=== PATIENT | female | born 1955 | race Caucasian/White ===

== ENCOUNTER 2019-05-01 20:28 | Emergency (ER) | payer OTHER ==
[2019-05-01 20:44] VITALS: BP 129/77; PULSE 72; BMI 28.9
--- NOTE | 2019-05-01 21:45 | PDOC ---
Documentation entered by Isai Fonseca SCRIBE, acting as scribe for Izabel Conn MD. Izabel Conn MD: This documentation has been prepared by the darielaeRaymundo Angel, SCRIBE, under my direction and personally reviewed by me in its entirety. I confirm that the documentation accurately reflects all work, treatment, procedures, and medical decision making performed by me. History of Present Illness - General Chief Complaint: Injury Stated Complaint: KNEE INJURY Time Seen by Provider: 05/01/19 20:32 History Source: Patient Exam Limitations: No Limitations - History of Present Illness Initial Comments: 05/01/19 21:22 The patient is a 63 year old female with a significant past medical history of GERD and LLE surgery for Ganglion who presents to the ED s/p fall (1:30pm). The patient states she was holding a gift on the way to a baby shower when her heel got caught in a dent on the sidewalk. The patient states since she was holding the gift she landed on her knees before breaking her fall with her hands. The patient has 2 non-bleeding abrasions, one on her left knee and one on her right, reporting some edema in her right leg and stiffness in her left. The patient also states she feels Achy at the waist. Patient denies any LOC, head trauma, or previous leg injuries. Past History - Past Medical History Allergies/Adverse Reactions: Allergies Allergy/AdvReac Type Severity Reaction Status Date / Time grass pollen-perennial rye, Allergy Mild Verified 06/13/17 21:29 standar [grass poll-perennial rye,std] ANIMAL DANDER Allergy Mild Uncoded 06/13/17 21:29 NKDA Allergy Mild Uncoded 06/13/17 21:29 Home Medications: Ambulatory Orders Calcium Carbonate/Vitamin D3 [Calcium 600 + Vit D Tablet] 2 each PO DAILY 06/13/17 Multivit-Min/Iron/Folic/Lutein [Centrum Silver Women Tablet] 1 each PO DAILY Anemia: No Asthma: No Cancer: No Cardiac Disorders: No CVA: No COPD: No CHF: No Dementia: No Diabetes: No GI Disorders: Yes (GERD DYSPHAGIA) Disorders: No HTN: No Hypercholesterolemia: No Liver Disease: No Seizures: No Thyroid Disease: No - Surgical History Abdominal Surgery: Yes (ABDOMINAL ADHESIONS REMOVED) Appendectomy: Yes Cardiac Surgery: No Cholecystectomy: No Lung Surgery: No Neurologic Surgery: No Orthopedic Surgery: Yes (GANGLION REMOVED FRO LEFT LOWER LEG WITH BONE GRAFT) - Immunization History Immunization Up to Date: Yes - Psycho Social/Smoking Cessation Hx Smoking History: Never smoked Have you smoked in the past 12 months: Yes Number of Cigarettes Smoked Daily: 4 If you are a former smoker, when did you quit?: 03/28/2017 'Breaking Loose' booklet given: 06/13/17 Hx Alcohol Use: Yes (SOCIAL) Drug/Substance Use Hx: No Substance Use Type: None, Alcohol Hx Substance Use Treatment: No Review of Systems - Review of Systems Able to Perform ROS?: Yes Comments:: 05/01/19 21:24 GENERAL/CONSTITUTIONAL: No fever or chills. No weakness. HEAD, EYES, EARS, NOSE AND THROAT: No change in vision. No ear pain or discharge. No sore throat. CARDIOVASCULAR: No chest pain or shortness of breath. RESPIRATORY: No cough, wheezing, or hemoptysis. GASTROINTESTINAL: No nausea, vomiting, diarrhea or constipation. GENITOURINARY: No dysuria, frequency, or change in urination. MUSCULOSKELETAL: Lower left extremities non-bleeding abrasions, edema and stiffness. No neck or back pain. SKIN: No rash NEUROLOGIC: No headache, vertigo, loss of consciousness, or change in strength/sensation. ENDOCRINE: No increased thirst. No abnormal weight change. HEMATOLOGIC/LYMPHATIC: No anemia, easy bleeding, or history of blood clots. ALLERGIC/IMMUNOLOGIC: No hives or skin allergy. *Physical Exam - Vital Signs Last Vital Signs Temp Pulse Resp BP Pulse Ox 72 16 129/77 100 05/01/19 20:31 05/01/19 20:31 05/01/19 20:31 05/01/19 20:31 - Physical Exam 05/01/19 21:21 GENERAL: Awake, alert, and fully oriented, in no acute distress HEAD: No signs of trauma ABDOMEN: Soft, nontender, normoactive bowel sounds. No guarding, no rebound. No masses EXTREMITIES: RLE- knee non-bleeding 2.5 cm linear abrasion surrounding mild edema and tenderness. No patellar tenderness or deformity. Distal motor and sensory function intact. LLE- knee non-bleeding 3 cm abrasion with surrounding edema/ tenderness. No patellar tenderness or deformity. Distal motor and sensory function intact. Remainder the extremity exam is normal NEUROLOGICAL: Cranial nerves II through XII grossly intact. Normal speech, normal gait ED Progress Note - Progress Note Progress Note: As noted above, 63-year-old woman presents with a fall earlier today (approximately 1 PM) when her heel caught in a defect in the sidewalk and she fell forward striking bilateral knees; no other injury noted. No LOC or neck trauma noted. Exam as described above. X-ray images of bilateral knees (2 position) obtained. Images interpreted by of the radiology staff: No evidence of fracture or dislocation Clinical presentation most consistent with contusion and abrasions of bilateral knees. Results discussed with the patient. Abrasions cleansed using sterile normal saline, carefully debriding any foreign material. bacitracin ointment applied to the abrasions and wounds covered with Telfa pads. Jorge wrap was applied to each knee. Patient discharged with instructions to avoid strenuous lower body activity for the next few days. Tomorrow, she should elevate her legs and apply ice to anterior portion of her knees. Patient currently does not have an orthopedist and referral information for [facility] english provided for the patient. She should follow-up with orthopedics if she has persistent swelling or pain in her knees. Discharge - Discharge Information Problems reviewed: Yes Clinical Impression/Diagnosis: Contusion of knee Qualifiers: Encounter type: initial encounter Laterality: unspecified laterality Qualified Code(s): S80.00XA - Contusion of unspecified knee, initial encounter Condition: Stable Disposition: HOME - Follow up/Referral Referrals: Miguel Das MD [Staff Physician] - 1 week - Patient Discharge Instructions Patient Printed Discharge Instructions: Contusion Additional Instructions: Elevate/ice to front of both knees for the next 48 hours Avoid strenuous lower body activity for the next 2 days Jorge wrap during the day to both knees, remove at night for the next 2 to 3 days Tylenol/Motrin/Aleve as needed for pain; take Motrin or Aleve with food Bacitracin or Neosporin ointment to abrasions once or twice a day for the next week Follow-up with orthopedic group () if you have persistent pain or swelling - Post Discharge Activity
== END 2019-05-01 21:46 | disposition home or self-care (01) ==
LOC: FER 20:28
DX: S80.00XA Contusion of unspecified knee, initial encounter (principal); W18.39XA Other fall on same level, initial encounter; Y93.89 Activity, other specified; Y92.410 Unspecified street and highway as the place of occurrence of the external cause; J30.1 Allergic rhinitis due to pollen; J30.81 Allergic rhinitis due to animal (cat) (dog) hair and dander
CPT/HCPCS: 73560-TC-LT-FY; 73560-TC-RT-FY; 99283-25

== ENCOUNTER 2022-02-04 21:10 | Emergency (ER) | payer OTHER ==
[2022-02-04 21:29] VITALS: BP 140/85; PULSE 88; RESP 18; TEMP 98.8; BMI 29.2
[2022-02-04 21:39] LABS: HEMATOCRIT 41.3 % (32.4-45.2); HEMOGLOBIN 14.2 G/dL (10.7-15.3); MCH 30.6 pg (25.7-33.7); MCHC 34.3 g/dl (32.0-36.0); MEAN CELL VOLUME 89.1 fl (80-96); MEAN PLT VOLUME 7.7 fl (7.5-11.1); PLATELET COUNT 247.5 10^3/uL (134-434); RBC 4.63 10^6/uL (3.60-5.2); RDW 14.4 % (11.6-15.6); WHITE BLOOD COUNT 7.8 10^3/uL (4.0-10.8)
[2022-02-04 21:55] LABS: ALBUMIN 4.2 g/dl (3.4-5.0); BILIRUBIN,TOTAL 0.5 mg/dl (0.2-1); CALCIUM 8.7 mg/dl (8.5-10); TOT PROT 6.8 g/dl (6.4-8.2)
[2022-02-04] MEDS ORDERED: DOXYCYCLINE INJECTION 100 MG in DEXTROSE 5%-WATER 100 ML IVPB ONE (21:58)
[2022-02-04] MEDS ORDERED: DOXYCYCLINE HYCLATE 100 MG VIAL ONE (22:00)
[2022-02-04] MEDS ORDERED: CEFTRIAXONE 2,000 MG in DEXTROSE 5%-WATER - 50 ML IVPB ONE (22:04)
== END 2022-02-04 23:51 | disposition home or self-care (01) ==
LOC: FER 21:10
PROC: 3E033GC Introduction of Other Therapeutic Substance into Peripheral Vein, Percutaneous Approach (ICD-10-PCS; principal; 2022-02-04)
DX: K57.92 Diverticulitis of intestine, part unspecified, without perforation or abscess without bleeding (principal)
CPT/HCPCS: 36415; 80053; 85027; 99284-25

== ENCOUNTER 2022-03-04 17:30 | Emergency (ER) | payer OTHER ==
[2022-03-04] MEDS ORDERED: SODIUM CHLORIDE 0.9% 1000 ML INFUS.BAG IV ONE (17:38)
[2022-03-04 17:52] VITALS: BP 127/80; PULSE 80; RESP 16; TEMP 98.7; BMI 29.2
[2022-03-04 18:10] LABS: HEMATOCRIT 41.3 % (32.4-45.2); HEMOGLOBIN 13.9 G/dL (10.7-15.3); MCH 30.2 pg (25.7-33.7); MCHC 33.7 g/dl (32.0-36.0); MEAN CELL VOLUME 89.6 fl (80-96); MEAN PLT VOLUME 7.6 fl (7.5-11.1); PLATELET COUNT 265.6 10^3/uL (134-434); RBC 4.61 10^6/uL (3.60-5.2); RDW 13.4 % (11.6-15.6); WHITE BLOOD COUNT 11.2 10^3/uL (4.0-10.8)
[2022-03-04 18:15] LABS: BILIRUBIN,TOTAL 0.9 mg/dl (0.2-1); CALCIUM 8.9 mg/dl (8.5-10); CREATININE 0.8 mg/dl (0.55-1.3)
[2022-03-04 19:05] LABS: PLATELET ESTIMATE ADEQUATE
[2022-03-04] MEDS ORDERED: CEFTRIAXONE 2 GM-D5W BAG 2 GM/50 ML BAG IVPB ONE (20:00)
== END 2022-03-04 21:25 | disposition home or self-care (01) ==
LOC: FER 17:30 → SUPCPDRO 17:30 → FER 21:25
PROC: 3E033GC Introduction of Other Therapeutic Substance into Peripheral Vein, Percutaneous Approach (ICD-10-PCS; principal; 2022-03-04)
DX: K57.92 Diverticulitis of intestine, part unspecified, without perforation or abscess without bleeding (principal)
CPT/HCPCS: 36415; 74177-TC; 80053; 85027; 86140; 99285-25; Q9967